=== PATIENT | male | born 1960 | race American Indian/Alaskan Native ===

== ENCOUNTER 2021-03-08 12:20 | Emergency (ER) | payer MEDICARE ==
[2021-03-08] MEDS ORDERED: IBUPROFEN 600 MG TAB PO ONE (13:04)
--- NOTE | 2021-03-08 13:08 | Emergency Department Report ---
- General Chief Complaint: Dyspnea/Respdistress Stated Complaint: SOB PUI?: Yes Time Seen by Provider: 03/08/21 13:01 Source: patient, family Mode of arrival: Ambulatory Limitations: Physical Limitation - History of Present Illness Initial Comments: 61-year-old -[place] male presents to the emergency room complaining of a headache chest pain when he coughs cough shortness of breath x1 week. Patient states he got his booster shot of Mederma last Tuesday. He denies any fever does admit to body aches. He has been taken [id number] DayQuil and NyQuil as well as Tylenol. 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 MD Complaint: cough Onset/Timin -: week(s) Severity: moderate Quality: sharp (When he coughs) Consistency: intermittent Improves With: nothing Worsens With: other (Cough) Context: new medications (Booster of Moderma) Associated Symptoms: myalgias, headache, cough, shortness of breath. denies: fever, chills, rhinorrhea, nasal congestion, sore throat Treatments Prior to Arrival: none - Related Data Home Medications Medication Instructions Recorded Confirmed Last Taken No Known Home Medications [No 03/08/21 03/08/21 Unknown Reported Home Medications] Allergies Allergy/AdvReac Type Severity Reaction Status Date / Time No Known Allergies Allergy Verified 03/08/21 14:21 ED Review of Systems ROS: Stated complaint: SOB Other details as noted in HPI Comment: All other systems reviewed and negative ED Past Medical Hx - Past Medical History Hx Diabetes: Yes - Surgical History Additional Surgical History: "right shoulder" - Social History Smoking Status: Never Smoker Substance Use Type: Marijuana - Medications Home Medications: Home Medications Medication Instructions Recorded Confirmed Last Taken Type No Known Home Medications [No 03/08/21 03/08/21 Unknown History Reported Home Medications] ED Physical Exam - General Limitations: Physical Limitation General appearance: alert, in no apparent distress - Head Head exam: Present: atraumatic, normocephalic - Eye Eye exam: Present: normal appearance - ENT ENT exam: Present: mucous membranes moist - Neck Neck exam: Present: normal inspection - Respiratory Respiratory exam: Present: normal lung sounds bilaterally. Absent: respiratory distress - Cardiovascular Cardiovascular Exam: Present: regular rate, normal rhythm. Absent: systolic murmur, diastolic murmur, rubs, gallop - GI/Abdominal GI/Abdominal exam: Present: soft, normal bowel sounds - Rectal Rectal exam: Present: deferred - Extremities Exam Extremities exam: Present: normal inspection. Absent: pedal edema - Back Exam Back exam: Present: normal inspection - Neurological Exam Neurological exam: Present: alert, oriented X3, normal gait - Psychiatric Psychiatric exam: Present: normal affect, normal mood - Skin Skin exam: Present: warm, dry, intact, normal color. Absent: rash ED Course Vital Signs 03/08/21 03/08/21 12:26 14:19 Temperature 98.5 F 98.5 F Pulse Rate 97 H 69 Respiratory 20 16 Rate Blood Pressure 152/88 125/86 [Right] O2 Sat by Pulse 98 99 Oximetry ED Medical Decision Making - Lab Data Result diagrams: 03/08/21 13:37 03/08/21 13:37 - Medical Decision Making 61-year-old -[place] male presents to the emergency room complaining of a headache chest pain when he coughs cough shortness of breath x1 week. Patient states he got his booster shot of Mederma last Tuesday. He denies any fever d oes admit to body aches. He has been taken [id number] DayQuil and NyQuil as well as Tylenol. 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 CBC CMP troponin chest x-ray EKG. Labs are stable EKG is stable chest x-ray is stable for congestive heart failure. I do not feel patient is in fluid overload. Patient is to continue all chronic medications and follow-up with his primary care provider. Critical care attestation.: If time is entered above; I have spent that time in minutes in the direct care of this critically ill patient, excluding procedure time. ED Disposition Clinical Impression: Cough, CHF (congestive heart failure) Disposition: HOME / SELF CARE / HOMELESS Is pt being admited?: No Does the pt Need Aspirin: No Condition: Stable Instructions: Heart Failure, Self Care, [id number] Additional Instructions: Labs are stable chest x-ray stable. Recommend ibuprofen Tylenol increase your f luids advance diet as tolerated. Forms: Work/School Release Form(ED), Accompanied Note Time of Disposition: 14:45
--- NOTE | 2021-03-08 13:32 | XRay Report ---
CHEST 2 VIEWS INDICATION / CLINICAL INFORMATION: Shortness of breath and cough. COMPARISON: 06/27/09. FINDINGS: SUPPORT DEVICES: None. HEART / MEDIASTINUM: Median sternotomy. Normal heart size and pulmonary vasculature. LUNGS / PLEURA: Minimal bilateral pleural effusions. Interstitial lung markings may be slightly incre ased. No pneumothorax. ADDITIONAL FINDINGS: No significant additional findings. IMPRESSION: Trace bilateral pleural effusions and minimal interstitial lung disease. Minimal edema is suspected. Interstitial pneumonia is less likely. Signer Name: Dl Godoy MD Signed: 03/08/2021 1:28 PM Workstation Name: [id number]
[2021-03-08 13:57] LABS: Basophils % (Auto) 0.4 % (0.0-1.8); Eosinophils # (Auto) 0.1 K/mm3 (0.0-0.4); Eosinophils % (Auto) 1.8 % (0.0-4.3); Hematocrit 40.4 % (35.5-45.6); Hemoglobin 13.1 gm/dl (11.8-15.2); Lymphocytes # (Auto) 1.5 K/mm3 (1.2-5.4); Lymphocytes % (Auto) 23.6 % (13.4-35.0); Mean Corpuscular HGB Conc 32 % (32-34); Mean Corpuscular Volume 89 fl (84-94); Monocytes # (Auto) 0.8 K/mm3 (0.0-0.8); Monocytes % (Auto) 12.7 % (0.0-7.3); Platelet Count 254 K/mm3 (140-440); Red Blood Count 4.55 M/mm3 (3.65-5.03)
[2021-03-08 14:21] VITALS: BP 125/86
[2021-03-08 14:21] LABS: Alanine Aminotransferase 22 units/L (7-56); Albumin 3.1 g/dL (3.9-5); BUN/Creatinine Ratio 11; Blood Urea Nitrogen 9 mg/dL (9-20); Calcium 8.8 mg/dL (8.4-10.2); Hemolysis Index 8
== END 2021-03-08 15:32 | disposition home or self-care (01) ==
LOC: ED 12:20
DX: R05.9 Cough, unspecified (principal); Z86.79 Personal history of other diseases of the circulatory system; F12.90 Cannabis use, unspecified, uncomplicated; E11.9 Type 2 diabetes mellitus without complications
CPT/HCPCS: 36415; 71046; 80053; 84484; 85025; 93005; 99284